=== PATIENT | female | born 1935 | race Caucasian/White ===

== ENCOUNTER 2021-06-05 19:14 | Emergency (ER) | payer OTHER ==
[~2021-06-05] VITALS: Ht 157.5 cm; Wt 52.2 kg
[2021-06-05 19:40] VITALS: BP_SYST 135
--- NOTE | 2021-06-05 19:40 | NUR ---
Patient triaged and placed in waiting room. VSS and patient appears in no acute distress at this time. Accompanied by son, awaiting available bed, and MD notified of need for MSE.
--- NOTE | 2021-06-05 23:00 | NUR ---
patient called for bed placement. patient not in waiting room.
--- NOTE | 2021-06-05 23:32 | NUR ---
patient called for bed placement. patient not in waiting room
--- NOTE | 2021-06-06 00:12 | NUR ---
patient not in waiting room for bed placement.
[2021-06-06 02:49] VITALS: BP_SYST 135
--- NOTE | 2021-06-06 02:49 | NUR ---
patient left without being seen
== END 2021-06-06 02:49 | disposition left against medical advice (07) ==
LOC: SED 19:14
DX: S80.821A Blister (nonthermal), right lower leg, initial encounter (principal); X58.XXXA Exposure to other specified factors, initial encounter; Y93.89 Activity, other specified; Y92.89 Other specified places as the place of occurrence of the external cause; Y99.8 Other external cause status; Z53.21 Procedure and treatment not carried out due to patient leaving prior to being seen by health care provider